=== PATIENT | female | born 1995 | race Two or more races ===

== ENCOUNTER 2024-06-06 14:03 | Emergency (ER) | payer MEDICAID, OTHER ==
[~2024-06-06] VITALS: Ht 160 cm; Wt 102.0 kg
[2024-06-06 14:36] LABS: Urine Bacteria None Seen /hpf (None Seen)
[2024-06-06 14:42] LABS: Urine Blood 2+ /uL (Negative); Urine Clarity Clear (Clear); Urine Color Yellow (Yellow); Urine Mucus FEW (None Seen); Urine Protein, UAD 1+ (Negative); Urine Specific Gravity 1.042 (1.001-1.035); Urine Urobilinogen 2 mg/dL (Negative); Urine WBC 3 /hpf (0 - 5)
[2024-06-06 15:53] VITALS: BP 122/71; PULSE 94; RESP 18; TEMP 98; O2SAT 97
[2024-06-06] MEDS: ONDANSETRON ODT 4 MG TAB PO ONE (16:00)
[2024-06-06] MEDS: SUMAtriptan SUCCINATE 6 MG/0.5 ML VL SC ONE (16:01)
[2024-06-06] MEDS ORDERED: SUMA50TA2 PO (16:21)
== END 2024-06-06 16:21 | disposition home or self-care (01) ==
LOC: ER 14:03
DX: G43.909 Migraine, unspecified, not intractable, without status migrainosus (principal); Z32.02 Encounter for pregnancy test, result negative
CPT/HCPCS: 81001; 81025; 96372; 99283; J3030; Q0162

== ENCOUNTER 2024-07-18 10:43 | Inpatient (IN) | payer MEDICAID ==
[~2024-07-18] VITALS: Ht 160 cm; Wt 99.7 kg
[~2024-07-18 10:43] MED LIST: SUMA50TA2 PO
[2024-07-18] MEDS ORDERED: PROCHLORPERAZINE EDISYLATE 5 MG/ML 2ML VIAL IV ONE (11:30)
[2024-07-18] MEDS: PANTOPRAZOLE 40 MG/10 ML VIAL INJ IV ONE (11:30)
[2024-07-18 11:52] LABS: Basophils # (auto) 0 10 ^3/uL (0-0.2); Basophils % (auto) 0.4 % (0.0-2.0); Eosinophils # (auto) 0.1 10 ^3/uL (0-0.8); Eosinophils % (auto) 1.2 % (0.0-7.0); Hematocrit 42.1 % (36.0-46.0); Hemoglobin 14.5 g/dL (12.2-16.2); Lymphocytes # (auto) 3.2 10 ^3/uL (0.4-5.4); Lymphocytes % (auto) 28.5 % (10.0-50.0); Mean Corpuscular Hemoglobin 30.4 pg (28.0-32.0); Mean Corpuscular Hgb Conc. 34.4 g/dL (32.0-36.0); Mean Corpuscular Volume 88.6 fL (80.0-100.0); Monocytes # (auto) 0.9 10 ^3/uL (0-1.3); Monocytes % (auto) 7.9 % (0.0-12.0); Platelet Count (auto) 349 10^3/uL (140-450); Red Blood Cells 4.76 10^6/uL (4.0-5.20); Red Cell Distribution Width 14.2 % (11.8-14.3); White Blood Cell 11.3 10^3/uL (4.4-10.8)
[2024-07-18 12:16] LABS: Alanine Aminotransferase 44 U/L (7-40); Albumin 4.6 g/dL (3.2-4.8); Alkaline Phosphatase 97 U/L (46-116); Anion Gap 4 (5-15); Aspartate Aminotransferase 20 U/L (13-40); Bilirubin, Total 0.5 mg/dL (0.2-1.0); Blood Urea Nitrogen 9 mg/dL (9-23); Calcium 9.5 mg/dL (8.7-10.4); Carbon Dioxide 29 mmol/L (20-30); Chloride 106 mmol/L (98-107); Glucose 56 mg/dL (74-106); Lipase 42 U/L (12-53); Potassium 3.1 mmol/L (3.5-5.1); Sodium 139 mmol/L (136-145); Total Protein 8.1 g/dL (5.7-8.2)
[2024-07-18 14:11] LABS: Urine Bacteria FEW /hpf (None Seen); Urine Blood Negative /uL (Negative); Urine Clarity Turbid (Clear); Urine Color Yellow (Yellow); Urine Hyaline Cast FEW /lpf (0 - 2); Urine Mucus FEW (None Seen); Urine Protein, UAD 1+ (Negative); Urine Urobilinogen 2 mg/dL (Negative); Urine WBC 2 /hpf (0 - 5)
[2024-07-18] MEDS: SODIUM CHLORIDE 0.9% 1,000 ML IVB ONE (14:28)
[2024-07-18] MEDS ORDERED: NITR-87 PO (14:32)
[2024-07-18] MEDS ORDERED: ZOFR4T PO (14:32)
[2024-07-18] MEDS: POTASSIUM CHL 20 Meq TABLET PO ONE (14:33)
[2024-07-18] MEDS: ONDANSETRON HCL 4 MG/2 ML VIAL IV ONE (14:42)
[2024-07-18] MEDS: IOHEXOL 300 MG/ML 100ML BOTTLE IJ ONE (14:46)
[2024-07-18] MEDS ORDERED: DOCUSATE SOD 100 MG CAP PO PRN (18:00)
[2024-07-18] MEDS ORDERED: HYDROmorphone HCL 2 MG/ML VL/or syr IV PRN (18:00)
[2024-07-18] MEDS: SENNA 8.6 MG TAB PO SCH (21:09)
[2024-07-18] MEDS: DOCUSATE SOD 100 MG CAP PO SCH (21:09)
[2024-07-19] MEDS: SODIUM CHLOR 0.9% PF (SALINE LOCK) 10ML VIAL/SYR IV SCH (02:05)
[2024-07-19] MEDS: ONDANSETRON HCL 4 MG/2 ML VIAL IV PRN (02:08)
[2024-07-19] MEDS: LACTATED RINGER'S 1,000 ML IV ONE (02:30)
[2024-07-19] MEDS: HYDROcodone-ACET 5/325MG TAB PO PRN (05:14)
[2024-07-19 05:53] LABS: Basophils # (auto) 0 10 ^3/uL (0-0.2); Basophils % (auto) 0.4 % (0.0-2.0); Eosinophils # (auto) 0.1 10 ^3/uL (0-0.8); Eosinophils % (auto) 1.2 % (0.0-7.0); Hematocrit 38.4 % (36.0-46.0); Hemoglobin 13.1 g/dL (12.2-16.2); Lymphocytes # (auto) 3.1 10 ^3/uL (0.4-5.4); Lymphocytes % (auto) 27.5 % (10.0-50.0); Mean Corpuscular Hemoglobin 30.2 pg (28.0-32.0); Mean Corpuscular Volume 88.8 fL (80.0-100.0); Monocytes # (auto) 0.8 10 ^3/uL (0-1.3); Monocytes % (auto) 7.1 % (0.0-12.0); Neutrophils # (auto) 7.3 10 ^3/uL (1.6-8.6); Neutrophils % (auto) 63.8 % (37.0-80.0); Platelet Count (auto) 294 10^3/uL (140-450); Red Blood Cells 4.33 10^6/uL (4.0-5.20); Red Cell Distribution Width 14.4 % (11.8-14.3); White Blood Cell 11.4 10^3/uL (4.4-10.8)
[2024-07-19 05:54] VITALS: BP 110/73; PULSE 80; RESP 18; TEMP 97.8; O2SAT 99
[2024-07-19 06:10] LABS: Alanine Aminotransferase 35 U/L (7-40); Albumin 4.3 g/dL (3.2-4.8); Alkaline Phosphatase 86 U/L (46-116); Anion Gap 5 (5-15); Aspartate Aminotransferase 13 U/L (13-40); BUN/Creatinine Ratio 11.3 (10.0-20.0); Blood Urea Nitrogen 8 mg/dL (9-23); Calcium 9.1 mg/dL (8.7-10.4); Carbon Dioxide 25 mmol/L (20-30); Chloride 107 mmol/L (98-107); Glucose 94 mg/dL (74-106); Potassium 3.8 mmol/L (3.5-5.1); Sodium 137 mmol/L (136-145)
[2024-07-19 06:11] LABS: Bilirubin, Total 0.5 mg/dL (0.2-1.0); Total Protein 7.3 g/dL (5.7-8.2)
[2024-07-19 08:43] VITALS: BP_SYST 100; BP_SYST 122; BP_DIAS 42; BP_DIAS 79; PULSE 54; PULSE 59; RESP 16; RESP 20; TEMP 97.4; TEMP 97.6; O2SAT 100; O2SAT 96
[2024-07-19] MEDS: POLYETHYLENE GLYCOL 17 GM PWDR PO SCH (10:00)
[2024-07-19] MEDS: ENOXAPARIN SOD 40 MG/0.4 ML SYRINGE SC SCH (10:54)
[2024-07-19] MEDS: PANTOPRAZOLE 40 MG/10 ML VIAL INJ IV ONE (12:58)
[2024-07-19] MEDS: MORPHINE SULFATE INJ 2 MG/ml SYRG IV PRN (12:59)
[2024-07-19 13:32] VITALS: BP 121/84; PULSE 63; RESP 20; TEMP 98; O2SAT 97
[2024-07-19] MEDS ORDERED: LANS30CA58 PO (14:24)
[2024-07-19] MEDS: ACETAMINOPHEN 325 MG TAB PO PRN (16:54)
[2024-07-19 17:19] VITALS: BP 107/70; PULSE 66; RESP 20; TEMP 98.4; O2SAT 97
[2024-07-19] MEDS: metroNIDAZOLE 500MG/100ML 100 ML IV ONE (18:15)
[2024-07-19 20:00] VITALS: BP 94/63; PULSE 60; RESP 18; O2SAT 97
[2024-07-19] MEDS: cefTRIAXone 1GM/50ML D5W 50 ML IV ONE (20:21)
[2024-07-19] MEDS: metroNIDAZOLE 500MG/100ML 100 ML IV SCH (21:50)
[2024-07-20 06:39] LABS: Basophils # (auto) 0 10 ^3/uL (0-0.2); Basophils % (auto) 0.3 % (0.0-2.0); Eosinophils # (auto) 0.1 10 ^3/uL (0-0.8); Eosinophils % (auto) 1.9 % (0.0-7.0); Hematocrit 37.9 % (36.0-46.0); Hemoglobin 12.8 g/dL (12.2-16.2); Lymphocytes # (auto) 2.5 10 ^3/uL (0.4-5.4); Lymphocytes % (auto) 33.7 % (10.0-50.0); Mean Corpuscular Hemoglobin 30.1 pg (28.0-32.0); Mean Corpuscular Hgb Conc. 33.8 g/dL (32.0-36.0); Mean Corpuscular Volume 89.1 fL (80.0-100.0); Monocytes # (auto) 0.6 10 ^3/uL (0-1.3); Monocytes % (auto) 7.8 % (0.0-12.0); Neutrophils # (auto) 4.2 10 ^3/uL (1.6-8.6); Neutrophils % (auto) 56.3 % (37.0-80.0); Nucleated Red Blood Cells % 0.1 %; Platelet Count (auto) 268 10^3/uL (140-450); Red Blood Cells 4.26 10^6/uL (4.0-5.20); White Blood Cell 7.5 10^3/uL (4.4-10.8)
[2024-07-20 06:48] LABS: Alanine Aminotransferase 26 U/L (7-40); Albumin 3.6 g/dL (3.2-4.8); Alkaline Phosphatase 72 U/L (46-116); Anion Gap 6 (5-15); Aspartate Aminotransferase 12 U/L (13-40); Bilirubin, Total 0.5 mg/dL (0.2-1.0); Calcium 8.6 mg/dL (8.7-10.4); Carbon Dioxide 25 mmol/L (20-30); Chloride 108 mmol/L (98-107); Glucose 83 mg/dL (74-106); Potassium 3.8 mmol/L (3.5-5.1); Sodium 139 mmol/L (136-145)
[2024-07-20 06:49] LABS: Total Protein 6.3 g/dL (5.7-8.2)
[2024-07-20 07:25] LABS: BUN/Creatinine Ratio 7.7 (10.0-20.0); Blood Urea Nitrogen < 5 mg/dL (9-23)
[2024-07-20 07:30] VITALS: PULSE 65; RESP 17; O2SAT 98
[2024-07-20 09:00] VITALS: BP 126/80; PULSE 54; RESP 16; TEMP 98.2; O2SAT 99
[2024-07-20] MEDS: cefTRIAXone 1GM/50ML D5W 50 ML IV SCH (11:01)
[2024-07-20] MEDS: PANTOPRAZOLE 40 MG/10 ML VIAL INJ IV SCH (11:01)
[2024-07-20 12:56] VITALS: BP 114/64; PULSE 67; RESP 18; TEMP 98.4; O2SAT 100
[2024-07-20] MEDS: KETOROLAC TROMETH 30 MG/ML 1ML VIAL IV ONE (14:32)
[2024-07-20] MEDS: PROCHLORPERAZINE EDISYLATE 5 MG/ML 2ML VIAL IV ONE (14:38)
[2024-07-20 17:00] VITALS: BP 133/84; PULSE 78; RESP 18; TEMP 98.3; O2SAT 97
[2024-07-20 20:00] VITALS: PULSE 54; RESP 17
[2024-07-20 21:00] VITALS: BP 111/76; PULSE 54; RESP 17; TEMP 97.9; O2SAT 100
[2024-07-21 01:00] VITALS: BP 114/71; PULSE 53; RESP 18; TEMP 97.9; O2SAT 99
[2024-07-21 05:00] VITALS: BP 96/57; PULSE 56; RESP 17; TEMP 98.8; O2SAT 98
[2024-07-21 06:19] LABS: Alanine Aminotransferase 22 U/L (7-40); Albumin 3.6 g/dL (3.2-4.8); Alkaline Phosphatase 69 U/L (46-116); Anion Gap 6 (5-15); Aspartate Aminotransferase 9 U/L (13-40); Bilirubin, Total 0.3 mg/dL (0.2-1.0); Calcium 8.7 mg/dL (8.7-10.4); Carbon Dioxide 26 mmol/L (20-30); Chloride 108 mmol/L (98-107); Glucose 91 mg/dL (74-106); Potassium 3.8 mmol/L (3.5-5.1); Sodium 140 mmol/L (136-145); Total Protein 6.1 g/dL (5.7-8.2)
[2024-07-21 06:23] LABS: Basophils # (auto) 0 10 ^3/uL (0-0.2); Basophils % (auto) 0.4 % (0.0-2.0); Eosinophils # (auto) 0.1 10 ^3/uL (0-0.8); Eosinophils % (auto) 1.6 % (0.0-7.0); Hematocrit 36.9 % (36.0-46.0); Hemoglobin 12.6 g/dL (12.2-16.2); Lymphocytes # (auto) 2.7 10 ^3/uL (0.4-5.4); Lymphocytes % (auto) 32.1 % (10.0-50.0); Mean Corpuscular Hemoglobin 30.3 pg (28.0-32.0); Mean Corpuscular Hgb Conc. 34.2 g/dL (32.0-36.0); Mean Corpuscular Volume 88.7 fL (80.0-100.0); Monocytes # (auto) 0.7 10 ^3/uL (0-1.3); Monocytes % (auto) 7.7 % (0.0-12.0); Neutrophils % (auto) 58.2 % (37.0-80.0); Nucleated Red Blood Cells % 0.1 %; Platelet Count (auto) 272 10^3/uL (140-450); Red Blood Cells 4.16 10^6/uL (4.0-5.20); Red Cell Distribution Width 14.3 % (11.8-14.3); White Blood Cell 8.5 10^3/uL (4.4-10.8)
[2024-07-21 06:25] LABS: BUN/Creatinine Ratio 6.8 (10.0-20.0); Blood Urea Nitrogen < 5 mg/dL (9-23)
[2024-07-21] MEDS: PROCHLORPERAZINE EDISYLATE 5 MG/ML 2ML VIAL IV PRN (06:48)
[2024-07-21 08:58] VITALS: BP 104/67; PULSE 82; RESP 16; TEMP 98.4; O2SAT 100
[2024-07-21 10:11] LABS: COVID19 ANTIGEN SOFIA FIA NEGATIVE (NEGATIVE)
[2024-07-21 13:00] VITALS: BP 115/77; PULSE 87; RESP 16; TEMP 98.2; O2SAT 94
[2024-07-21 16:59] VITALS: BP 155/89; PULSE 72; RESP 16; TEMP 98.2; O2SAT 98
[2024-07-21] MEDS: LORazepam 0.5 MG TAB PO PRN (17:38)
[2024-07-21 21:00] VITALS: BP 129/94; PULSE 75; RESP 18; TEMP 98; O2SAT 98
[2024-07-22] VITALS (8 sets, daily range): BP systolic 102–137; BP diastolic 55–85; PULSE 62–100; RESP 16–22; TEMP 98–98.2; O2SAT 96–100
[2024-07-22 07:14] LABS: INR 1.12 (0.9-1.15); Partial Thromboplastin Time 31.6 SEC (24.5-34.5); Prothrombin Time 11.8 sec (9.3-11.8)
[2024-07-22 07:18] LABS: Alanine Aminotransferase 24 U/L (7-40); Alkaline Phosphatase 70 U/L (46-116); Anion Gap 8 (5-15); Basophils # (auto) 0 10 ^3/uL (0-0.2); Basophils % (auto) 0.3 % (0.0-2.0); Calcium 8.6 mg/dL (8.7-10.4); Carbon Dioxide 24 mmol/L (20-30); Chloride 107 mmol/L (98-107); Eosinophils # (auto) 0.1 10 ^3/uL (0-0.8); Eosinophils % (auto) 1.2 % (0.0-7.0); Glucose 91 mg/dL (74-106); Hematocrit 37.3 % (36.0-46.0); Hemoglobin 12.9 g/dL (12.2-16.2); Lymphocytes # (auto) 2.7 10 ^3/uL (0.4-5.4); Mean Corpuscular Hemoglobin 30.5 pg (28.0-32.0); Mean Corpuscular Hgb Conc. 34.7 g/dL (32.0-36.0); Mean Corpuscular Volume 87.9 fL (80.0-100.0); Monocytes # (auto) 0.6 10 ^3/uL (0-1.3); Monocytes % (auto) 6.9 % (0.0-12.0); Neutrophils % (auto) 59.6 % (37.0-80.0); Nucleated Red Blood Cells % 0.1 %; Platelet Count (auto) 276 10^3/uL (140-450); Potassium 3.9 mmol/L (3.5-5.1); Red Blood Cells 4.24 10^6/uL (4.0-5.20); Red Cell Distribution Width 14.2 % (11.8-14.3); Sodium 139 mmol/L (136-145); White Blood Cell 8.3 10^3/uL (4.4-10.8)
[2024-07-22 07:19] LABS: Albumin 3.7 g/dL (3.2-4.8); Aspartate Aminotransferase 13 U/L (13-40); Bilirubin, Total 0.4 mg/dL (0.2-1.0); Total Protein 6.4 g/dL (5.7-8.2)
[2024-07-22 07:24] LABS: BUN/Creatinine Ratio 7.2 (10.0-20.0); Blood Urea Nitrogen < 5 mg/dL (9-23)
[2024-07-22] MEDS ORDERED: SODIUM CHLORIDE LOCK 10 ML ONE (07:52)
[2024-07-22] MEDS: LIDOCAINE VISCOUS 2% 15ML UD ONE (08:43)
[2024-07-22] MEDS: MIDAZOLAM HCL 5 MG/ML-1ML VIAL ONE (08:44)
[2024-07-22] MEDS: fentaNYL CITRATE 100 MCG/2 ML VL ONE (08:44)
[2024-07-22] MEDS: diphenhdrAMINE HCL 50 MG/1 ML VL ONE (08:44)
[2024-07-22] MEDS ORDERED: METOCLOPRAMIDE HCL 5MG/ml INJ 2ml VIAL IV PRN (09:00)
[2024-07-22] MEDS: PANTOPRAZOLE 40 MG/10 ML VIAL INJ IV SCH (11:26)
[2024-07-22] MEDS: SUCRALFATE 1 GM/10 ML ORAL SUSP GT SCH (11:31)
[2024-07-22] MEDS ORDERED: PANT40TA2 PO (12:50)
[2024-07-22] MEDS ORDERED: SUCR1TAB31 PO (12:50)
== END 2024-07-22 17:58 | disposition home or self-care (01) | DRG 249 ==
LOC: ER 10:43 → OVERFLOW 17:49 → CENTRAL 07-19 05:54
PROVIDERS: ADMIT Internal Medicine; ATTEND Internal Medicine
PROC: 0DB68ZX Excision of Stomach, Via Natural or Artificial Opening Endoscopic, Diagnostic (ICD-10-PCS; 2024-07-22)
PROC: 0DB48ZX Excision of Esophagogastric Junction, Via Natural or Artificial Opening Endoscopic, Diagnostic (ICD-10-PCS; 2024-07-22)
PROC: 0DB98ZX Excision of Duodenum, Via Natural or Artificial Opening Endoscopic, Diagnostic (ICD-10-PCS; principal; 2024-07-22 08:40)
DX: K52.9 Noninfective gastroenteritis and colitis, unspecified (principal); B16.9 Acute hepatitis B without delta-agent and without hepatic coma; G43.009 Migraine without aura, not intractable, without status migrainosus; K59.00 Constipation, unspecified; E66.9 Obesity, unspecified; F12.10 Cannabis abuse, uncomplicated; K29.80 Duodenitis without bleeding; K29.70 Gastritis, unspecified, without bleeding; K44.9 Diaphragmatic hernia without obstruction or gangrene; Z68.39 Body mass index [BMI] 39.0-39.9, adult; Z90.49 Acquired absence of other specified parts of digestive tract; Z83.3 Family history of diabetes mellitus
CPT/HCPCS: 36415; 43239; 74177; 80053; 81001; 81025; 82962; 83690; 84702; 85025; 85610; 85730; 86850; 86900; 86901; 87426; G0378; J1885; J2250; J2405; J2470; J3490